=== PATIENT | male | born 1955 | race Caucasian/White ===

== ENCOUNTER 2023-12-23 14:07 | Emergency (ER) | payer BC, SELFPAY ==
[2023-12-23 14:08] VITALS: BP 103/73; PULSE 61; RESP 20; TEMP 35.9; O2SAT 100; BMI 26.6
[2023-12-23 14:29] LABS: Absolute Lymphocyte Count 1.02 X10^3/uL (0.83-4.51); Absolute Neutrophil Count 7.6 X10^3/uL (2.0-7.7); Basophil# 0.04 X10^3/uL; Basophil% 0.4 % (0-1); Eosinophil# 0.05 X10^3/uL; Eosinophils% 0.5 % (0-5); Hematocrit 40.8 % (40-54); Hemoglobin 13.6 g/dL (13.0-16.5); Lymphocyte # 1.02 X10^3/ul (0.83-4.51); Lymphocyte % 10.7 % (19-41); Mean Corp Hgb Conc 33.3 g/dL (32-36); Mean Corpuscular Hgb 32.1 pg (27.0-32.0); Mean Corpuscular Volume 96.2 fL (80-94); Mean Platelet Vol. 9.5 fl (6.2-12.0); Monocyte# 0.78 X10^3/uL; Monocyte% 8.2 % (0-10); NRBC Flagged by Analyzer 0 % (0-5); Neutrophil # 7.59 X10^3/uL (2.7-7.7); Neutrophil % 79.8 % (47-70); Platelet Count 196 K/mm3 (150-450); RBC Distribution Width CV 12.8 % (11.6-14.6); RBC Distribution Width SD 45.3 fl (35.1-43.9); Red Blood Count 4.24 M/mm3 (4.6-6.2); White Blood Count 9.5 K/mm3 (4.4-11.0)
[2023-12-23 14:46] LABS: ALB/GLOB Ratio 1.1 RATIO (0.9-2.4); AST(SGOT) 18 U/L (15-37); Alanine Aminotransfer ALT/SGPT 24 U/L (16-61); Albumin, Serum 3.8 g/dL (3.2-5.0); Alkaline Phosphatase 70 U/L (45-117); Anion Gap 3 (5-15); BUN 14 mg/dL (7-18); BUN/Creat Ratio 11.4 RATIO (10-20); Calcium,Total 9.1 mg/dL (8.5-10.1); Chloride 107 mmol/L (98-107); Creatinine, Serum 1.23 mg/dL (0.70-1.30); EST Glomerular Filtration Rate 63 mL/min (>60); Est Glom Filt Rate - Afr Amer 76 mL/min (>60); Estimated Creatinine Clearance 55.23 ml/min; Globulin 3.4 g/dL (2.2-4.2); Glucose 125 mg/dL (74-106); Potassium 3.8 mmol/L (3.5-5.1); Protein, Total 7.2 g/dL (6.4-8.2); Sodium Level 138 mmol/L (136-145)
[2023-12-23 15:01] LABS: Bacteria 0 SEEN /hpf (None Seen); Mucous, Urine 0 SEEN /hpf (<or=2+); Squamous Epithelial Cells - UA 0 SEEN /hpf (0-5); White Blood Cells 0 SEEN /hpf (0-5)
[2023-12-23 15:16] LABS: Color, Urine Yellow (Yellow); Glucose, Dipstick Normal (Normal); Ketone-Dipstick Negative (Negative); Leukocyte Esterase-Dipstick 25 /ul (Negative); Nitrite-Dipstick Negative (Negative); Occult Blood-Urine 50 /ul (Negative); Protein-Dipstick 30 mg/dl (Negative); Specific Gravity, Urine 1.025 (1.002-1.030); Urine Bilirubin Dipstick Negative (Negative); Urine Clarity Sl. Cloudy (Clear); Urine Urobilinogen Normal (Normal)
[2023-12-23 15:43] LABS: Calcium Oxalate Crystals Ur 1+ /hpf (<or=2+)
[2023-12-23 15:44] LABS: Red Blood Cells-Urine 5-10 SEEN /hpf (0-5)
[2023-12-23] MEDS: 0.9% Normal Saline (1000mL) 1,000 ML 250 ML IV (15:45)
[2023-12-23] MEDS: Morphine 4 MG/ML Syringe IV (15:45)
[2023-12-23] MEDS: Ketorolac 15 MG/ML Vial IV (15:45)
[2023-12-23] MEDS: Ondansetron 4 MG/2 ML Vial IV (15:46)
[2023-12-23 16:06] VITALS: BP 101/68; PULSE 60; RESP 18; O2SAT 99
--- NOTE | 2023-12-23 17:06 | EX.ED.DYSGE1 ---
HPI History of Present Illness Chief Complaint: Flank Pain Detail of Chief Complaint: Acute right flank pain radiating anteriorly Informant: patient Onset/Context/Timing Onset: Today Context: Sudden Onset Timing: Continuous and Waxes and wanes Quality: Colicky Location: Right flank radiating anteriorly Current Severity: Severe Maximum Severity: Severe Worsened by: Known obstructing right ureteral stone, 3 mm Relieved by: Nothing Associated Symptoms Associated Symptoms: Nausea and vomiting Narrative Narrative: Patient is a 68-year-old male visiting from out of town. He is from [place]. He developed abrupt onset of right flank pain rating anteriorly. He was diagnosed with obstructing right ureteral stone mid ureter. Stone is 3 mm size. He will be in town until January 08 visiting his son. He denies fever, chills night sweats. He denies cardiac respiratory symptoms. He denies urologic symptoms other than mild urgency. Prior similar symptoms: Yes Recent Illness/Hospitalization: Yes [facility] Medical History (Updated 12/23/23 @ 17:[address] Cheng Banks MD) Abdominal hernia Depression Hypertension Home Medications ?Medication ?Instructions ?Recorded ?Last Taken ?Type atorvastatin 40 mg tablet 40 mg PO DAILY 12/23/23 Unknown History dexmethylphenidate 10 mg 10 mg PO DAILY 12/23/23 Unknown History capsule,extended release [id number] (Focalin XR) fexofenadine 180 mg tablet 180 mg PO DAILY 12/23/23 Unknown History (Aller-Fex) ketorolac 10 mg tablet 10 mg PO Q6H PRN pain #20 tabs 12/23/23 Unknown Rx lisinopril 20 mg tablet 20 mg PO DAILY 12/23/23 Unknown History multivitamin 1 tab PO DAILY 12/23/23 Unknown History omeprazole 20 mg capsule,delayed 20 mg PO DAILY 12/23/23 Unknown History release ondansetron 4 mg disintegrating 4 mg PO Q8H PRN PRN Nausea #10 tabs 12/23/23 Unknown Rx tablet sertraline 100 mg tablet 100 mg PO BID 12/23/23 Unknown History tamsulosin 0.4 mg capsule 0.4 mg PO DAILY 12/23/23 Unknown History Allergy/AdvReac Type Severity Reaction Status Date / Time No Known Allergies Allergy Verified 12/23/23 14:43 Family History Mother Hypertension Heart disease Brother Cancer Father Myocardial infarction Surgical History H/O shoulder surgery H/O brain surgery Social History household members: significant other current occupational status: employed Smoking Status: Never smoker ROS ROS ED Constitutional Constitutional ED: Denies chills, fever(s), subjective or sweats Cardiovascular Cardiovascular: Denies chest pain or palpitations Respiratory/Chest Respiratory/Chest: Denies cough, dyspnea or dyspnea on exertion Gastrointestinal Gastrointestinal: Reports abdominal pain, nausea and vomiting; Denies constipation, diarrhea or melena Genitourinary Genitourinary ED: Reports urinary frequency; Denies dysuria or hematuria Musculoskeletal Musculoskeletal: Denies arthralgias, back pain, myalgias or neck pain Integumentary Denies rash Hematologic/Lymphatic Hematologic/Lymphatic: Reports systems reviewed and no addt'l complaints, except as documented EXAM Physical Exam Const Vital Signs: 12/23/23 14:08 12/23/23 16:06 Temperature 96.7 F L Temperature Source Temporal Pulse Rate 61 60 Respiratory Rate 20 H 18 Blood Pressure 103/73 101/68 Blood Pressure Mean 83 79 Pulse Ox 100 99 Oxygen Delivery Method Room Air Room Air Positive well nourished and well developed Constitutional Narrative: Patient is an obvious discomfort and Pantene. General Appearance ED: well developed; Negative for NAD or pallor HEENT Reports moist mucous membranes HEENT Narrative: Head is atraumatic normocephalic. Ears normal. Nares patent. Eyes PERRL and EOMs intact bilaterally General Eye ED: Negative for pale conjunctiva or scleral icterus Neck supple Resp normal respiratory effort and clear to auscultation bilaterally Cardio regular rate, regular rhythm, S1 normal heart sound, S2 normal heart sound and no murmurs GI normal to inspection, nondistended, normoactive bowel sounds, non-distended and no masses; Negative for non-tender or hepatosplenomegaly GI Narrative: Tenderness to deep palpation over the right kidney Back/Spine General Back: CVA tenderness right Extremity normal to inspection General Extremety ED: Negative for edema or tenderness General Extremity: Negative for edema Neuro oriented x3 and CN's II-XII intact bilaterally Sensorium / Orientation: alert Psych mental status grossly normal Skin no rashes or lesions noted, no wounds and skin turgor normal General Skin Exam: Negative for jaundice or pallor MDM MDM MDM Narrative Medical decision making narrative: Concern patient has pain due to obstructing right ureteral stone. Will obtain urine to assess for infection. CBC assess white count differential and BMP to assess renal function. Nurse protocol orders were started. Patient was treated with IV morphine and ketorolac with significant improvement in his pain. Lab Data Attestation: I reviewed the patient's lab results. Lab results narrative: CBC is normal. Comprehensive metabolic panel for slight elevation glucose of 125 normal CO2 anion gap. Urine is remarkable for spec gravity 1.025, is slightly cavity. There is occult blood and leukoesterase noted on macro. 5-10 WBCs with no WBCs or bacteria seen. There is calcium oxalate stones noted. Labs: Laboratory Results - last 24 hr 12/23/23 12/23/23 14:15 14:46 WBC 9.5 RBC 4.24 L Hgb 13.6 Hct 40.8 MCV 96.2 H MCH 32.1 H MCHC 33.3 RDW Std Deviation 45.3 H RDW Coeff of Regla 12.8 Plt Count 196 MPV 9.5 Immature Gran % (Auto) 0.400 Neut % (Auto) 79.8 H Lymph % (Auto) 10.7 L Cross % (Auto) 8.2 Eos % (Auto) 0.5 Baso % (Auto) 0.4 Absolute Neuts (auto) 7.6 Absolute Lymphs (auto) 1.02 Nucleated RBC % 0 Sodium 138 Potassium 3.8 Chloride 107 Carbon Dioxide 28.0 Anion Gap 3 L BUN 14 Creatinine 1.23 Estim Creat Clear Calc 55.23 Est GFR (MDRD) Af Amer 76 Est GFR (MDRD) Non-Af 63 BUN/Creatinine Ratio 11.4 Glucose 125 H Calcium 9.1 Total Bilirubin 0.90 AST 18 ALT 24 Alkaline Phosphatase 70 Total Protein 7.2 Albumin 3.8 Globulin 3.4 Albumin/Globulin Ratio 1.1 Urine Color Yellow Urine Clarity Sl. Cloudy Urine pH 5.0 Ur Specific [place] 1.025 Urine Protein 30 H Urine Glucose (UA) Normal Urine Ketones Negative Urine Occult Blood 50 H Urine Nitrite Negative Urine Bilirubin Negative Urine Urobilinogen Normal Ur Leukocyte Esterase 25 H Urine RBC 5-10 SEEN Urine WBC 0 SEEN Ur Squamous Epith Cells 0 SEEN Calcium Oxalate Crystal 1+ Urine Bacteria 0 SEEN Urine Mucus 0 SEEN Treatment and Re-Evaluation :: Patient was reassessed he was markedly better. He was discharged to home with prescription for ketorolac and antiemetic. He also was referred to Dr. Mcleod. Discharge Plan Triage Chief Complaint: Flank Pain ED Provider: Cheng Banks Dx/Rx/DC Orders Clinical Impression: Hydronephrosis with urinary obstruction due to ureteral calculus Instructions: ED Kidney Stone with Pain Prescriptions: New ketorolac 10 mg tablet 10 mg PO Q6H PRN (Reason: pain) Qty: 20 0RF Rx Instructions: maximum total duration of 5 days from all oral, intranasal, or parenteral formulations ondansetron 4 mg tablet,disintegrating 4 mg PO Q8H PRN PRN (Reason: Nausea) Qty: 10 0RF No Action omeprazole 20 mg capsule,delayed release(DR/EC) 20 mg PO DAILY tamsulosin 0.4 mg capsule 0.4 mg PO DAILY lisinopril 20 mg tablet 20 mg PO DAILY atorvastatin 40 mg tablet 40 mg PO DAILY fexofenadine [Aller-Fex] 180 mg tablet 180 mg PO DAILY dexmethylphenidate [Focalin XR] 10 mg capsule,ER biphasic 50-50 10 mg PO DAILY multivitamin Tablet 1 tab PO DAILY sertraline 100 mg tablet 100 mg PO BID Primary Care Provider: Care Physician,No Primary Referrals: Julius Jenkins MD [Med Staff - Active Staff] - As Needed Care Physician,No Primary [Primary Care Provider] - Print Language: Gambian Disposition Disposition: Home, Self Care
[2023-12-23 17:26] VITALS: BP 101/68; PULSE 60; RESP 18; TEMP 36.8; O2SAT 99
== END 2023-12-23 17:28 | disposition home or self-care (01) ==
PROVIDERS: Emergency Provider Emergency Medicine; Visit Provider Emergency Medicine
DX: N13.2 Hydronephrosis with renal and ureteral calculous obstruction (principal); R11.2 Nausea with vomiting, unspecified; I10 Essential (primary) hypertension; Z79.899 Other long term (current) drug therapy; F32.A Depression, unspecified
CPT/HCPCS: 80053; 81001; 85025; 96361; 96374; 96375; 99283; A4216; J2405